=== PATIENT | female | born 2000 | race Hispanic/Latino ===

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

== ENCOUNTER 2022-01-06 18:32 | Emergency (ER) | payer OTHER ==
[2022-01-06] MEDS ORDERED: Ibuprofen 200 MG TAB ONE (18:54)
== END 2022-01-06 19:48 | disposition home or self-care (01) ==
LOC: NAV ERS 18:32
DX: S83.92XA Sprain of unspecified site of left knee, initial encounter (principal); X58.XXXA Exposure to other specified factors, initial encounter